=== PATIENT | female | born 1980 | race African-American/Black ===

== ENCOUNTER 2016-07-30 15:59 | Emergency (ER) | payer MEDICAID, OTHER ==
[~2016-07-30] VITALS: Ht 167.6 cm; Wt 76.0 kg
[~2016-07-30 15:59] MED LIST: AMIT-187
[2016-07-30] MEDS ORDERED: IBUPROFEN 600MG TABLET PO STA (16:27)
[2016-07-30 16:40] LABS: CLARITY URINE CLOUDY (CLEAR); COLOR URINE YELLOW (YELLOW); GLUCOSE URINE NEGATIVE (NEGATIVE); KETONES URINE NEGATIVE (NEGATIVE); LEUKOCYTE ESTERASE URINE NEGATIVE (NEGATIVE); NITRITE URINE NEGATIVE (NEGATIVE); OCCULT BLOOD URINE NEGATIVE (NEGATIVE); PROTEIN URINE NEGATIVE (NEGATIVE); SPECIFIC GRAVITY URINE 1.019 (1.005-1.030)
[2016-07-30 16:51] LABS: BASOPHILS % 0.7 % (0.0-2.0); EOSINOPHILS % 4.1 % (0.0-5.0); HEMATOCRIT. 39.8 % (36.0-48.0); HEMOGLOBIN. 13.5 g/dL (12.0-16.0); LYMPHOCYTES % 35.1 % (20.0-50.0); MEAN CORPUSCULAR HEMOGLOBIN 33.4 pg (28.0-32.0); MEAN CORPUSCULAR VOLUME 98.6 fL (81.0-99.0); MEAN PLATELET VOLUME 7.8 fl (7.4-10.4); MONOCYTES % 10.3 % (2.0-8.0); NEUTROPHILS % 49.8 % (40.0-76.0); PLATELET 186 x1000/uL (130-400); RED BLOOD CELL COUNT 4.04 mill/uL (4.2-5.4)
[2016-07-30 16:52] LABS: *AMPHETAMINES SCREEN URINE NEGATIVE (NEGATIVE); *BARBITURATES SCREEN URINE NEGATIVE (NEGATIVE); *BENZODIAZEPINES SCREEN URINE NEGATIVE (NEGATIVE); *COCAINE SCREEN URINE NEGATIVE (NEGATIVE); METHADONE URINE SCREEN NEGATIVE (NEGATIVE); OPIATES URINE SCREEN NEGATIVE (NEGATIVE); PHENCYCLIDINE URINE SCREEN NEGATIVE (NEGATIVE)
[2016-07-30 16:56] LABS: PROTHROMBIN TIME 10.4 sec
[2016-07-30 16:57] LABS: CANNABINOID URINE SCREEN PRESUMTIVE POSITIVE (NEGATIVE)
[2016-07-30 17:03] LABS: CARBON DIOXIDE 27 mEq/L (21-32); CHLORIDE 109 mEq/L (98-107)
[2016-07-30] MEDS ORDERED: IBUPROFEN 200MG TABLET PO ONE (18:00)
[2016-07-30] MEDS ORDERED: KETOROLAC 30MG/ML VIAL IM ONE (18:15)
[2016-07-30 19:33] VITALS: BP 103/69
== END 2016-07-30 19:40 | disposition home or self-care (01) ==
LOC: ER 16:52
DX: M94.0 Chondrocostal junction syndrome [Tietze] (principal); F41.9 Anxiety disorder, unspecified; F32.9 Major depressive disorder, single episode, unspecified; F17.200 Nicotine dependence, unspecified, uncomplicated
CPT/HCPCS: 36415; 71010; 80053; 80305; 81001; 81025; 85025; 85610; 93005; 96372; 99285; J1885; Z7610